=== PATIENT | male | born 1965 | race Two or more races ===

== ENCOUNTER → 2016-08-14 | Day surgery (SDC) | payer BC ==
[~2016-08-14] VITALS: Ht 152.4 cm; Wt 76.2 kg
[2016-08-14] VITALS (8 sets, daily range): BP systolic 81–112; BP diastolic 50–72
[~2016-08-14] MED LIST: LR 1000ml ONE; Lidocaine 1% MPF 10mg/ml 5ml ONE; NKM; Propofol 10mg/ml 20ml IV ONE
--- NOTE | 2016-08-14 09:02 | Pre-Procedure Note/Attestation ---
Pre-Procedure Note/Attestation Complete Prior to Procedure Planned Procedure: not applicable Procedure Narrative: egd/colon Indications for Procedure Pre-Operative Diagnosis: gerd, screening colon Attestation I attest that I discussed the nature of the procedure; its benefits; risks and complications; and alternatives (and the risks and benefits of such alternatives ), prior to the procedure, with the patient (or the patient's legal agency service representative). I attest that, if there was a reasonable possibility of needing a blood transfusion, the patient (or the patient's legal agency service representative) was given the [facility] standardized written summary, pursuant to the [place] Blood Safety Act ([place] Health and Safety Code # 1645, as amended). I attest that I re-evaluated the patient just prior to the surgery and that there has been no change in the patient's H&P, except as documented below: KWAN MORROW Aug 14, 2016 09:02
--- NOTE | 2016-08-14 09:03 | Short Stay Surgery H&P ---
History of Present Illness History of Present Illness Chief Complaint screening colon, GERD HPI Leobardo Albrecht is a 51 year old male who was admitted on for Colon Screening, Gerd Patient History Allergies: Coded Allergies: No Known Allergies (Unverified , 08/14/16) PAST MEDICAL HISTORY: (1) GERD (gastroesophageal reflux disease) Past Surgeries: Social History: Medication History Scheduled No Known Medications* (NKM - No Known Medications*), 0 ., (Reported) Review of Systems Cardiovascular: Reports: no symptoms Respiratory: Reports: no symptoms Skeletal: Reports: no symptoms Gastrointestinal: Reports: no symptoms Genitourinary: Reports: no symptoms Neurologic: Reports: no symptoms Endocrine: Reports: no symptoms Hematologic: Reports: no symptoms Physical Exam Vital Signs Last Vital Signs Date Time Temp Pulse Resp B/P Pulse Ox O2 Delivery O2 Flow Rate FiO2 08/14/16 08:50 97.7 47 20 100/58 98 Room Air Skin: normal HENT: normal Heart: normal Lungs: normal Abdomen: normal Extremities: normal Plan Plan of Care egd/colon Final Diagnosis: Attestation Are the patient's medical conditions optimized for surgery? Attestation Response: yes KWAN MORROW Aug 14, 2016 09:03
--- NOTE | 2016-08-14 09:10 | Endoscopy Procedure Note ---
Endoscopy Procedure Note Indication for Procedure: gerd, screening colon Procedures Performed: EGD, colonoscopy Operative Findings/Diagnosis: gastritis, hemorrhoids, one polyp Specimen: yes Pt Tolerated Procedure Well: Yes Estimated Blood Loss: none Anesthesiologist: ana Anesthesia: MAC Implant(s) used?: No 50 yrs or older w/o bx or poly: No 10yrs. F/U not recommended: Yes If not recommended, why?: Above average risk 10 yrs. F/U needed: Yes 18 years or older w/prev. colo: No KWAN MORROW Aug 14, 2016 09:10
--- NOTE | 2016-08-14 09:24 | Anethesia Preoperative Eval ---
Anesthesia Pre-op PMH/ROS General Date of Evaluation: Aug 14, 2016 Time of Evaluation: 09:00 Anesthesiologist: tony ASA Score: ASA 2 Mallampati Score Class I : Soft palate, uvula, fauces, pillars visible Class II: Soft palate, uvula, fauces visible Class III: Soft palate, base of uvula visible Class IV: Only hard plate visible Mallampati Classification: Class II Surgeon: jose Diagnosis: colon screen Surgical Procedure: egd/colonoscopy Anesthesia History: none Family History: no anesthesia problems Allergies: Coded Allergies: No Known Allergies (Unverified , 08/14/16) Medications: see eMAR Past Medical History Cardiovascular: Denies: CAD, HTN, [place], arrhythmia, other, valve dz Pulmonary: Denies: COPD, KEON, asthma, other Gastrointestinal/Genitourinary: Reports: GERD Neurologic/Psychiatric: Denies: CVA, TIA, dementia, depression/anxiety, other Endocrine: Denies: DM, hypothyroidism, other, steroids HEENT: Denies: [place] (L), [place] (R), cataract (L), cataract (R), glaucoma, other Musculoskeletal/Integumentary: Denies: DDD, DJD, OA, RA, edema, other Anesthesia Pre-op Phys. Exam Physician Exam Last Vital Signs Date Time Temp Pulse Resp B/P Pulse Ox O2 Delivery O2 Flow Rate FiO2 08/14/16 08:50 97.7 47 20 100/58 98 Room Air Constitutional: NAD Neurologic: CN 2-12 intact Cardiovascular: RRR Respiratory: CTA Gastrointestinal: S/NT/ND Airway Exam Mallampati Classification 2 Mallampati Score: Class II MO: full ROM: full Dentures: no lower, no upper Anesthesia Pre-op A/P Studies Pre-op Studies: EKG Risk Assessment & Plan Plan: mac Status Change Before Surgery: No Pre-Antibiotics Drug: none JOSY CHAPMAN CRNA Aug 14, 2016 09:24
--- NOTE | 2016-08-14 11:38 | 48 Hour Post Anesthesia Eval ---
Post Anesthesia Evaluation Procedure: egd/colonoscopy Date of Evaluation: Aug 14, 2016 Time of Evaluation: 11:33 Blood Pressure Systolic: 100 0: 50 Pulse Rate: 70 Respiratory Rate: 14 O2 Sat by Pulse Oximetry: 100 Airway: patent Nausea: No Vomiting: No Hydration Status: adequate Mental Status/LOC: patient returned to baseline Post-Anesthesia Complications: none Follow-up care needed: N/A JOSY CHAPMAN CRNA Aug 14, 2016 11:38
--- NOTE | 2016-08-14 11:40 | Immediate Post-Op Evaluation ---
Immediate Post-Op Evalulation Immediate Post-Op Evalulation Procedure: egd/colonoscopy Date of Evaluation: Aug 14, 2016 Time of Evaluation: 09:35 IV Fluids: 500 Blood Pressure Systolic: 90 Blood Pressure Diastolic: 50 Pulse Rate: 48 Respiratory Rate: 15 O2 Sat by Pulse Oximetry: 98 Temperature (Fahrenheit): 97.5 Nausea: No Vomiting: No Complications none Patient Status: awake, patent Hydration Status: adequate Drug: none JOSY CHAPMAN CRNA Aug 14, 2016 11:40
--- NOTE | 2016-08-14 17:07 | Procedure Note ---
DATE OF PROCEDURE: 08/13/2016 SURGEON: Alfredo Delacruz M.D. PROCEDURE: Upper endoscopy with biopsy and colonoscopy with snare polypectomy. ANESTHESIA: Per CHILD NUTRITION ASSISTANT, Misa Tarconchisllnichelle. INSTRUMENT: Olympus adult flexible upper endoscope and colonoscope. INDICATION: 1. Screening colonoscopy evaluation. 2. Chronic acid reflux disease. REASON FOR PROCEDURE: The procedure, risks, benefits, and possible consequences, including hemorrhage, aspiration, perforation and infection, and alternative treatments, were explained to the patient/legal guardian by Dr. Alfredo Delacruz and the patient/legal guardian understood and accepted these risks. DESCRIPTION OF PROCEDURE: After informed consent was obtained and the patient was adequately sedated, first Olympus upper endoscope was advanced from the mouth into the second portion of duodenum and retroflexion was performed in the stomach. The patient had evidence of diffuse mild gastritis. Random biopsy from antrum was obtained to rule out H. pylori infection. Otherwise, the rest of the upper endoscopic examination was grossly within normal limits. At this time, the upper endoscope was retrieved and the patient was turned over for colonoscopy. First, a rectal exam was performed, which was positive for internal hemorrhoids. Then the scope was advanced from the rectum into the cecum documented by appendiceal orifice, ileocecal valve, and right upper quadrant palpation. Quality of prep was very good. The patient had one polyp in the rectum, sessile, roughly measured about 7 mm, removed with hot snare polypectomy technique. Retroflexion of rectum showed evidence of medium-sized internal hemorrhoids. SUMMARY OF FINDINGS: 1. Gastritis, status post biopsy. 2. One rectal polyp removed, see above for details. 3. Internal hemorrhoids. RECOMMENDATIONS: 1. Follow up biopsy results and treat accordingly. 2. We recommend repeat colonoscopy in five years. Alfredo Delacruz M.D. DR: JORDAN JOB#: [id number] CC:
--- NOTE | 2016-08-15 20:27 | Cardiology Report ---
APPROVED REPORT EKG Measurement Heart [id number] IN [id number] Sinus bradycardia Otherwise normal ECG
== END | disposition home or self-care (01) ==
LOC: GAS 07:10
DX: Z12.11 Encounter for screening for malignant neoplasm of colon (principal); K62.1 Rectal polyp; K64.8 Other hemorrhoids; K21.9 Gastro-esophageal reflux disease without esophagitis; K29.50 Unspecified chronic gastritis without bleeding; B96.81 Helicobacter pylori [H. pylori] as the cause of diseases classified elsewhere
CPT/HCPCS: 43239; 45385; 93005; J2704; J7120; 94003; 94150

== ENCOUNTER 2016-12-03 09:29 | Outpatient (CLI) | payer BC ==
[~2016-12-03 09:29] MED LIST changes: -LR 1000ml ONE; -Lidocaine 1% MPF 10mg/ml 5ml ONE; -Propofol 10mg/ml 20ml IV ONE
== END 2016-12-03 10:00 | disposition home or self-care (01) ==
LOC: PAN 09:29
DX: K29.70 Gastritis, unspecified, without bleeding (principal)
CPT/HCPCS: 83013; 83014